=== PATIENT | female | born 1975 | race Caucasian/White ===

== ENCOUNTER 2020-08-08 05:46 | Day surgery (SDC) | payer OTHER ==
[2020-08-07 10:18] VITALS: BMI 32.8
[2020-08-08] MEDS ORDERED: Fentanyl 100 MCG/2 ML VIAL ONE (06:30)
[2020-08-08] MEDS ORDERED: Sodium Chloride 0.9% 10 ML ONE (06:37)
[2020-08-08] MEDS ORDERED: Bacitracin Zinc Ointment 30 gm TUBE ONE (06:37)
[2020-08-08] MEDS ORDERED: Bupivacaine PF 0.5% 30 ML VIAL ONE (06:37)
[2020-08-08] MEDS ORDERED: Dexmedetomidine 200 MCG/2 ML VIAL ONE (07:06)
[2020-08-08] MEDS ORDERED: Betamet Acet/Betamet Na Ph 30 MG/5 ML VIAL ONE (07:37)
--- NOTE | 2020-08-08 09:07 | OP ---
DATE OF PROCEDURE: 08/08/2020 PREOPERATIVE DIAGNOSIS: Left de Quervain tenosynovitis. POSTOPERATIVE DIAGNOSIS: Left de Quervain tenosynovitis. PROCEDURE PERFORMED: Application of short-arm splint. FINDINGS: Two large tendons with very tight retinaculum to include proximal to the primary 1st dorsal compartment retinaculum. TOURNIQUET TIME: 14 minutes. ANESTHESIA: General endotracheal anesthesia augmented by 20 mL of 0.5% Marcaine with no epinephrine. DESCRIPTION OF PROCEDURE: After successful general endotracheal anesthesia, the limb was prepped and draped. The patient had the incision outlined which was 2 cm zigzag and then we injected 10 mL of 0.5% Marcaine without epinephrine prior to incision and 10 more was given after the procedure was ended. The limb was exsanguinated, tourniquet inflated to 250 mmHg pressure. A zigzag incision outlined was then carried through skin and subcutaneous tissue until we reached the first dorsal compartment. We gently retracted via blunt dissection all the branches of superficial radial nerve. With the nerve protected, self-retaining retractor was placed and we found the first dorsal compartment. We released the 1st dorsal compartment junction of its dorsal 3rd and mid 3rd to prevent postop subluxation. There was no separate compartment. There was mild amount of tenosynovitis proximal, this was released. The entire retinaculum could be seen released now and the tendons glided passive without inhibition. We placed 3 mL of Celestone on the tendon area. There was no subluxation. We released the tourniquet, obtained hemostasis. We then closed the incision with interrupted 4-0 nylon in a mattress pattern interrupted. The patient had a bulky dressing applied along with a thumb spica short-arm splint and left the operating room without evidence of anesthetic or operative complication. Job ID: [id number]
[2020-08-08] MEDS ORDERED: Ketorolac Tromethamine 30 MG/ML VIAL ONE (09:50)
[2020-08-08] MEDS ORDERED: Ondansetron PF 4 MG/2 ML Vial ONE (09:50)
[2020-08-08] MEDS ORDERED: Lidocaine 1% PF 5 ML VIAL ONE (09:50)
[2020-08-08] MEDS ORDERED: PROPOFOL 200 MG/20 ML VIAL ONE (09:50)
[2020-08-08] MEDS ORDERED: Dexamethasone 20 MG/5 ML VIAL ONE (09:50)
== END 2020-08-08 09:26 | disposition home or self-care (01) ==
LOC: SDC 05:46
PROVIDERS: ATTEND Orthopaedic Surgery Hand Surgery
PROC: 0LN60ZZ Release Left Lower Arm and Wrist Tendon, Open Approach (ICD-10-PCS; principal; 2020-08-08)
DX: M65.4 Radial styloid tenosynovitis [de Quervain] (principal); M79.2 Neuralgia and neuritis, unspecified; I10 Essential (primary) hypertension; Z79.899 Other long term (current) drug therapy; Z88.2 Allergy status to sulfonamides; Z88.8 Allergy status to other drugs, medicaments and biological substances; Z87.891 Personal history of nicotine dependence
CPT/HCPCS: J0690; J0702; J1100; J1885; J2405; J2704; J3010; J3490; S0020

== ENCOUNTER 2022-05-13 18:00 | Outpatient (CLI) | payer OTHER | END 2022-05-13 18:01 | disposition home or self-care (01) | LOC: SLEEPLAB 18:00 | PROVIDERS: ATTEND Family Medicine | DX: G47.33 Obstructive sleep apnea (adult) (pediatric) (principal); R51.9 Headache, unspecified; I10 Essential (primary) hypertension; R06.83 Snoring; G47.00 Insomnia, unspecified | CPT/HCPCS: 95800 ==

== ENCOUNTER 2023-12-25 14:26 | Outpatient (CLI) | payer BC, OTHER | END 2023-12-25 14:27 | disposition home or self-care (01) | LOC: BICMAMMO 14:26 | PROVIDERS: ATTEND Family Medicine | DX: Z12.31 Encounter for screening mammogram for malignant neoplasm of breast (principal); N64.89 Other specified disorders of breast | CPT/HCPCS: 77063; 77067 ==

== ENCOUNTER 2024-01-05 07:48 | Outpatient (CLI) | payer OTHER | END 2024-01-05 07:49 | disposition home or self-care (01) | LOC: BICMAMMO 07:48 | PROVIDERS: ATTEND Family Medicine | DX: N64.89 Other specified disorders of breast (principal); N60.02 Solitary cyst of left breast | CPT/HCPCS: G0279 ==

== ENCOUNTER 2025-02-22 08:17 | Outpatient (CLI) | payer OTHER | END 2025-02-22 08:18 | disposition home or self-care (01) | LOC: MRI 08:17 | PROVIDERS: ATTEND Family Medicine | DX: G43.909 Migraine, unspecified, not intractable, without status migrainosus (principal); M54.2 Cervicalgia; M48.02 Spinal stenosis, cervical region | CPT/HCPCS: 70551 ==

== ENCOUNTER 2025-04-05 14:57 | Outpatient (CLI) | payer OTHER | END 2025-04-05 14:58 | disposition home or self-care (01) | LOC: BICMRI 14:57 | PROVIDERS: ATTEND Family Medicine | DX: M48.02 Spinal stenosis, cervical region (principal); M54.2 Cervicalgia; M47.812 Spondylosis without myelopathy or radiculopathy, cervical region; G95.20 Unspecified cord compression; Z98.1 Arthrodesis status | CPT/HCPCS: 72141 ==